=== PATIENT | male | born 1970 | race Caucasian/White ===

== ENCOUNTER 2018-07-02 09:11 | Inpatient (IN) ==
[2018-07-02 10:19] LABS: Amorphous Crystals,Urine Occasional /HPF (Few); Apearance,Urine CLOUDY (Clear); Bilirubin,Urine Negative (Negative); Blood, Urine Moderate mg/dL (Negative); Glucose,Urine (UA) Negative (Negative); Ketones,Urine Negative (Negative); Mucus,Urine Occasional /LPF (Occasional); Nitrite,Urine Negative (Negative); Protein,Urine Negative; RBC,Urine 14 /HPF (0-4); Squamous Epithelial Cell,Urine Occasional /HPF (0-10); Urine Color Yellow (Yellow); Urine Specific Gravity 1.014 (1.001-1.035); WBC,Urine 3 /HPF (0-6)
[2018-07-02] MEDS ORDERED: ONDANSETRON 4 MG/2 ML VIAL IV STA (10:25)
[2018-07-02] MEDS ORDERED: SODIUM CHLORIDE 0.9% 1,000 ML IV STA (10:25)
[2018-07-02 10:40] LABS: Barbiturates Screen,Urine Negative (Negative); Benzodiazepines Screen,Urine Negative (Negative); Cannabinoid Screen,Urine Positive (Negative); Opiate Screen,Urine Negative (Negative); Phencyclidine Screen,Urine Negative (Negative)
[2018-07-02] MEDS ORDERED: ONDANSETRON 4 MG/2 ML VIAL ONE (10:40)
[2018-07-02 10:58] LABS: Basophils % 0.2 % (0.0-0.8); Eosinophils % 0.3 % (0.00-10.9); Hemoglobin 13.5 GM/DL (14.0-18.0); Immature Granulocytes % 0.3 %; Immature Granulocytes Absolute 0.04 #; Lymphocytes # 1.3 10*3/uL (1.4-4.0); Lymphocytes % 10.1 % (21.2-54.2); Mean Corpuscular HGB Conc 34.6 GM/DL (32-36); Mean Corpuscular Hemoglobin 28 PG (27-34); Mean Corpuscular Volume 80.7 FL (87-102); Mean Platelet Volume 10.5 FL (9.6-12.0); Monocytes # 0.8 10*3/uL (0.11-0.8); Monocytes % 6.7 % (1.7-12.7); Neutrophils # 10.3 10*3/uL (1.4-7.4); Neutrophils % 82.4 % (38.7-73.9); Platelet Count 304 T/CUMM (130-400); Red Blood Count 4.83 MC/CUMM (3.8-5.5); Red Cell Distribution Width 14.3 % (9.3-17.3); White Blood Count 12.5 T/CUMM (4-12)
[2018-07-02 11:09] LABS: INR 1.1; PT Patient Result 11.6 SECS
[2018-07-02 11:16] LABS: Albumin 3.7 G/DL (3.4-5.0); Bilirubin,Total 0.7 MG/DL (0.2-1.0); Calcium 8.8 MG/DL (8.5-10.1); Osmolality,Calculated 269.2 MOS/KG (273-304); Potassium 3.1 MMOL/L (3.5-5.1); Total Protein 7.9 G/DL (6.4-8.3)
[2018-07-02] MEDS ORDERED: PROMETHAZINE 25 MG/1 ML VIAL ONE (11:53)
[2018-07-02] MEDS ORDERED: PROMETHAZINE 25 MG/1 ML VIAL IM STA (11:53)
[2018-07-02] MEDS ORDERED: ACETAMINOPHEN 325 MG TABLET PO PRN (14:41)
[2018-07-02] MEDS ORDERED: POTASSIUM CHLORIDE 20 MEQ TABLET PO PRN (15:03)
[2018-07-02] MEDS: SODIUM CHLORIDE 0.45% 1,000 ML IV SCH (16:20)
[2018-07-02] MEDS: ONDANSETRON 4 MG/2 ML VIAL IV PRN ×2 (16:28→20:36)
[2018-07-02] MEDS: MORPHINE 4 MG/1 ML VIAL IV PRN (16:40)
[2018-07-02] MEDS: PROMETHAZINE INJ 12.5 MG in SODIUM CHLORIDE 0.9% 50 ML IV PRN (17:38)
[2018-07-02] MEDS: PANTOPRAZOLE 40 MG VIAL IV SCH (20:34)
[2018-07-03] MEDS: SODIUM CHLORIDE 0.45% 1,000 ML IV SCH ×3 (01:05→20:35)
[2018-07-03] MEDS: ONDANSETRON 4 MG/2 ML VIAL IV PRN ×2 (03:30→21:12)
[2018-07-03 04:18] LABS: Basophils # 0.1 10*3/uL (0.0-0.2); Basophils % 0.7 % (0.0-0.8); Eosinophils # 0.1 10*3/uL (0.0-0.87); Eosinophils % 1.6 % (0.00-10.9); Hematocrit 37.9 VOL% (42.0-52.0); Hemoglobin 12.6 GM/DL (14.0-18.0); Immature Granulocytes % 0.3 %; Immature Granulocytes Absolute 0.03 #; Lymphocytes # 1.8 10*3/uL (1.4-4.0); Lymphocytes % 20.3 % (21.2-54.2); Mean Corpuscular HGB Conc 33.2 GM/DL (32-36); Mean Corpuscular Hemoglobin 28 PG (27-34); Mean Corpuscular Volume 82.6 FL (87-102); Mean Platelet Volume 10.2 FL (9.6-12.0); Monocytes # 0.9 10*3/uL (0.11-0.8); Monocytes % 10.6 % (1.7-12.7); Neutrophils # 5.9 10*3/uL (1.4-7.4); Neutrophils % 66.5 % (38.7-73.9); Platelet Count 274 T/CUMM (130-400); Red Blood Count 4.59 MC/CUMM (3.8-5.5); Red Cell Distribution Width 14.5 % (9.3-17.3); White Blood Count 8.8 T/CUMM (4-12)
[2018-07-03 04:49] LABS: Albumin 2.7 G/DL (3.4-5.0); Bilirubin,Total 0.6 MG/DL (0.2-1.0); Calcium 8.7 MG/DL (8.5-10.1); Osmolality,Calculated 274.5 MOS/KG (273-304); Potassium 3.6 MMOL/L (3.5-5.1); Total Protein 6.9 G/DL (6.4-8.3)
[2018-07-03 07:42] LABS: AFP Tumor 1.3 NG/ML (0-8); Cancer Antigen 19-9 15.4 U/ML (0-37); Carcinoembryonic Antigen 1.4 NG/ML (0.0-5.0)
[2018-07-03] MEDS: MORPHINE 4 MG/1 ML VIAL IV PRN (08:09)
[2018-07-03] MEDS: PANTOPRAZOLE 40 MG VIAL IV SCH (08:14)
[2018-07-03] MEDS: NICOTINE 14 MG/24 HR PATCH TRANSDERM SCH (12:29)
[2018-07-03] MEDS ORDERED: LIDOCAINE 100 MG/5 ML SYRINGE ONE (13:53)
[2018-07-03] MEDS ORDERED: PROPOFOL 200 MG/20 ML VIAL IV ONE (13:53)
[2018-07-03] MEDS: PROMETHAZINE INJ 12.5 MG in SODIUM CHLORIDE 0.9% 50 ML IV PRN (17:18)
[2018-07-03] MEDS: traZODone 50 MG TABLET PO PRN (21:10)
[2018-07-04] MEDS: PROMETHAZINE INJ 12.5 MG in SODIUM CHLORIDE 0.9% 50 ML IV PRN ×2 (00:49→08:48)
[2018-07-04 05:40] LABS: Basophils # 0.1 10*3/uL (0.0-0.2); Basophils % 0.5 % (0.0-0.8); Eosinophils # 0.2 10*3/uL (0.0-0.87); Eosinophils % 2.4 % (0.00-10.9); Hematocrit 36.1 VOL% (42.0-52.0); Hemoglobin 11.7 GM/DL (14.0-18.0); Immature Granulocytes % 0.3 %; Immature Granulocytes Absolute 0.03 #; Lymphocytes # 1.5 10*3/uL (1.4-4.0); Lymphocytes % 14.9 % (21.2-54.2); Mean Corpuscular HGB Conc 32.4 GM/DL (32-36); Mean Corpuscular Hemoglobin 28 PG (27-34); Mean Corpuscular Volume 86.2 FL (87-102); Mean Platelet Volume 11.1 FL (9.6-12.0); Monocytes # 0.9 10*3/uL (0.11-0.8); Neutrophils # 7.1 10*3/uL (1.4-7.4); Neutrophils % 72.9 % (38.7-73.9); Platelet Count 243 T/CUMM (130-400); Red Blood Count 4.19 MC/CUMM (3.8-5.5); Red Cell Distribution Width 14.6 % (9.3-17.3); White Blood Count 9.7 T/CUMM (4-12)
[2018-07-04 06:06] LABS: Albumin 2.7 G/DL (3.4-5.0); Bilirubin,Total 0.5 MG/DL (0.2-1.0); Calcium 7.9 MG/DL (8.5-10.1); Osmolality,Calculated 275.5 MOS/KG (273-304); Potassium 3.7 MMOL/L (3.5-5.1); Total Protein 6.5 G/DL (6.4-8.3)
[2018-07-04] MEDS: SODIUM CHLORIDE 0.45% 1,000 ML IV SCH ×4 (06:11→23:22)
[2018-07-04] MEDS: PANTOPRAZOLE 40 MG TABLET PO SCH ×2 (07:44→18:02)
[2018-07-04] MEDS: NICOTINE 14 MG/24 HR PATCH TRANSDERM SCH (08:39)
[2018-07-04] MEDS: MORPHINE 4 MG/1 ML VIAL IV PRN (08:49)
[2018-07-04 11:13] LABS: % Iron Saturation 7.6 % (18-50); Ferritin 82.9 ng/ml (26-388)
[2018-07-04 11:37] LABS: Folate 6.4 NG/ML (5.4-24.0)
[2018-07-04] MEDS ORDERED: BISACODYL 5 MG TABLET PO ONE (12:54)
[2018-07-04] MEDS: CYANOCOBALAMIN 1000 MCG/1 ML VIAL IM SCH (16:10)
[2018-07-04] MEDS: FOLIC ACID 1 MG TABLET PO SCH (20:37)
[2018-07-05 06:52] LABS: Basophils # 0.1 10*3/uL (0.0-0.2); Basophils % 0.9 % (0.0-0.8); Eosinophils # 0.3 10*3/uL (0.0-0.87); Eosinophils % 4.5 % (0.00-10.9); Hematocrit 35.1 VOL% (42.0-52.0); Hemoglobin 11.4 GM/DL (14.0-18.0); Immature Granulocytes % 0.3 %; Immature Granulocytes Absolute 0.02 #; Lymphocytes # 1.6 10*3/uL (1.4-4.0); Mean Corpuscular HGB Conc 32.5 GM/DL (32-36); Mean Corpuscular Hemoglobin 27 PG (27-34); Mean Corpuscular Volume 84.4 FL (87-102); Mean Platelet Volume 11.1 FL (9.6-12.0); Monocytes # 0.7 10*3/uL (0.11-0.8); Monocytes % 10.7 % (1.7-12.7); Neutrophils # 3.9 10*3/uL (1.4-7.4); Neutrophils % 59.6 % (38.7-73.9); Platelet Count 257 T/CUMM (130-400); Red Blood Count 4.16 MC/CUMM (3.8-5.5); Red Cell Distribution Width 14.7 % (9.3-17.3); White Blood Count 6.5 T/CUMM (4-12)
[2018-07-05 07:08] LABS: Calcium 8.2 MG/DL (8.5-10.1); Osmolality,Calculated 278.3 MOS/KG (273-304); Potassium 3.8 MMOL/L (3.5-5.1)
[2018-07-05] MEDS: CHOLECALCIFEROL 1,000 UNIT TABLET PO SCH (12:19)
[2018-07-05] MEDS: PANTOPRAZOLE 40 MG TABLET PO SCH ×2 (12:20→21:45)
[2018-07-05] MEDS: CYANOCOBALAMIN 1000 MCG/1 ML VIAL IM SCH (12:20)
[2018-07-05] MEDS: NICOTINE 14 MG/24 HR PATCH TRANSDERM SCH (12:20)
[2018-07-05] MEDS: FOLIC ACID 1 MG TABLET PO SCH ×2 (12:20→21:46)
[2018-07-05] MEDS: DOCUSATE SODIUM 100 MG CAPSULE PO SCH ×2 (13:36→21:45)
[2018-07-05] MEDS: SODIUM CHLORIDE 0.45% 1,000 ML IV SCH ×2 (17:05)
[2018-07-05] MEDS: METOCLOPRAMIDE 10 MG/2 ML VIAL IV SCH ×2 (18:03→23:59)
[2018-07-05] MEDS: POLYETHYLENE GLYCOL POWDER 17 GM PACK PO SCH (21:47)
[2018-07-05] MEDS: traZODone 50 MG TABLET PO PRN (22:46)
[2018-07-06] MEDS: SODIUM CHLORIDE 0.45% 1,000 ML IV SCH (01:05)
[2018-07-06 06:15] LABS: Basophils % 0.6 % (0.0-0.8); Eosinophils # 0.4 10*3/uL (0.0-0.87); Eosinophils % 6.5 % (0.00-10.9); Hematocrit 33.7 VOL% (42.0-52.0); Immature Granulocytes % 0.2 %; Immature Granulocytes Absolute 0.01 #; Lymphocytes # 1.7 10*3/uL (1.4-4.0); Lymphocytes % 27.1 % (21.2-54.2); Mean Corpuscular HGB Conc 32.6 GM/DL (32-36); Mean Corpuscular Hemoglobin 28 PG (27-34); Mean Corpuscular Volume 84.3 FL (87-102); Mean Platelet Volume 11.1 FL (9.6-12.0); Monocytes # 0.7 10*3/uL (0.11-0.8); Neutrophils # 3.3 10*3/uL (1.4-7.4); Neutrophils % 53.6 % (38.7-73.9); Platelet Count 253 T/CUMM (130-400); Red Cell Distribution Width 14.7 % (9.3-17.3); White Blood Count 6.2 T/CUMM (4-12)
[2018-07-06 06:23] LABS: INR 1.1; PT Patient Result 11.4 SECS
[2018-07-06] MEDS: METOCLOPRAMIDE 10 MG/2 ML VIAL IV SCH ×2 (06:43→13:05)
[2018-07-06 06:51] LABS: Albumin 2.4 G/DL (3.4-5.0); Bilirubin,Total 0.4 MG/DL (0.2-1.0); Calcium 8.2 MG/DL (8.5-10.1); Osmolality,Calculated 277.4 MOS/KG (273-304); Potassium 4.1 MMOL/L (3.5-5.1)
[2018-07-06] MEDS: PANTOPRAZOLE 40 MG TABLET PO SCH ×2 (07:38→17:09)
[2018-07-06] MEDS ORDERED: DIAZEPAM 5 MG TABLET PO ONE (08:00)
[2018-07-06] MEDS ORDERED: SODIUM CHLORIDE 0.45% 1,000 ML IV SCH (08:00)
[2018-07-06] MEDS: DOCUSATE SODIUM 100 MG CAPSULE PO SCH (08:08)
[2018-07-06] MEDS: FOLIC ACID 1 MG TABLET PO SCH (08:08)
[2018-07-06] MEDS: CHOLECALCIFEROL 1,000 UNIT TABLET PO SCH (08:09)
[2018-07-06] MEDS: POLYETHYLENE GLYCOL POWDER 17 GM PACK PO SCH (08:09)
[2018-07-06] MEDS: NICOTINE 14 MG/24 HR PATCH TRANSDERM SCH (09:18)
[2018-07-06] MEDS: CYANOCOBALAMIN 1000 MCG/1 ML VIAL IM SCH (09:19)
[2018-07-06 16:48] VITALS: BP 155/66
== END 2018-07-06 18:25 | disposition home or self-care (01) | DRG 384 ==
LOC: N.ED 09:11 → N.EDINP 14:41 → SUATTDRO 14:41 → N.3E 16:12
PROVIDERS: ADMIT Internal Medicine; ATTEND Hospitalist